=== PATIENT | female | born 1980 | race Hispanic/Latino ===

== ENCOUNTER 2017-06-09 07:45 | Day surgery (SDC) | payer OTHER ==
[2017-06-09 08:04] VITALS: BMI 26.5
[2017-06-09] MEDS ORDERED: Midazolam 2 MG/2 ML VIAL ONE (09:23)
[2017-06-09] MEDS ORDERED: Propofol 10 mg/ml Inj (20 ML) ONE ×2 (09:23→09:37)
--- NOTE | 2017-06-09 09:27 | CP.SDSHP ---
Same Day Surgery H & P - History Proposed Procedure: colonoscopy Pre-Op Diagnosis: crohn's colitis - Allergies Allergies: Allergies No Known Allergies Allergy (Verified 08/31/14 07:10) - Physical Exam General Appearance: NAD Vital Signs: Vital Signs 06/09/17 06/09/17 08:05 08:57 Temperature 98.2 F 98.2 F Pulse Rate 85 85 Respiratory 18 18 Rate Blood Pressure 140/90 140/90 O2 Sat by Pulse 100 100 Oximetry Mental Status: Alert & Oriented x3 Neuro: WNL Heart: WNL Lungs: WNL GI: WNL - {Optional Preform as Required} Abdomen: WNL - Impression Pt. Evaluated Today:Candidate for Anesthesia & Procedure: Yes - Date & Time Date: 06/09/17 Time: 09:27 Short Stay Discharge - Short Stay Discharge Admitting Diagnosis/Reason for Visit: CROHN'S DISEASE, UNSPECIFIED, WITHOUT COMPLICATION Disposition: HOME/ ROUTINE
[2017-06-09 10:14] VITALS: TEMP 97.5
[2017-06-09 10:50] VITALS: BP 124/87; PULSE 79; RESP 20; O2SAT 97
== END 2017-06-09 10:47 | disposition home or self-care (01) ==
LOC: C.ENDO 07:45
PROVIDERS: ATTEND Internal Medicine Gastroenterology
DX: K62.89 Other specified diseases of anus and rectum (principal); K64.8 Other hemorrhoids
CPT/HCPCS: 45380; 84703; 88305; J2250; J2704; J3010